=== PATIENT | male | born 1960 | race African-American/Black ===

== ENCOUNTER 2017-09-16 10:36 | Inpatient (IN) | payer MEDICARE ==
[~2017-09-16] VITALS: Ht 185.4 cm; Wt 71.8 kg
[2017-09-16 12:22] VITALS: BP 132/91
[2017-09-16] MEDS ORDERED: PERCOCET 10-321 EACH PO (12:36)
[2017-09-16] MEDS ORDERED: COLACE100 MG PO (12:37)
[2017-09-16] MEDS ORDERED: NICODERM CQ1 EAC2 T (12:37)
[2017-09-16] MEDS ORDERED: NORVASC5 MG PO (12:38)
[2017-09-16] MEDS ORDERED: PLAVIX75 M1 PO (12:38)
[2017-09-16] MEDS ORDERED: LIPITOR40 MG PO (12:38)
[2017-09-16] MEDS ORDERED: XARE20MG PO (12:39)
[2017-09-16] MEDS ORDERED: COZAAR50 M1 PO (12:39)
[2017-09-16 13:36] LABS: BASO % 0.2 % (0.0-1.0); EOS % 0.3 % (1.0-4.0); HEMATOCRIT 38.4 % (42.0-52.0); HEMOGLOBIN 12.4 g/dl (14.0-18.0); LYMPH # 1.1 10*3/uL (1.3-4.4); LYMPH % 17.5 % (27.0-41.0); MEAN CELL VOLUME 84.4 fl (80.0-94.0); MEAN CORPUSCULAR HGB 27.3 pg (27.0-31.0); MEAN CORPUSCULAR HGB CONC 32.3 g/dl (33.0-37.0); MEAN PLATELET VOLUME 10.6 fl (9.6-12.3); MONO # 0.3 10*3/uL (0.1-1.0); MONO % 5.1 % (3.0-9.0); NEUT # 4.6 10*3/uL (2.3-7.9); NEUT % 76.6 % (47.0-73.0); PLATELET COUNT AUTOMATED 254 10*3/uL (130-400); RED BLOOD COUNT 4.55 10*6/uL (4.50-5.90)
[2017-09-16 13:43] LABS: INTERNATIONAL NORM RATIO 0.9 (2.0-3.5)
[2017-09-16 13:50] LABS: ALBUMIN 3.5 gm/dl (3.1-4.5); ALKALINE PHOSPHATASE 88 U/L (45-117); BUN 13 mg/dl (7-24); CHLORIDE 108 mmol/L (98-107); CREATININE 1.19 mg/dL (0.70-1.30); POTASSIUM 3.8 mmol/L (3.5-5.1); SGOT/AST 15 IU/L (3-35); SGPT/ALT 25 U/L (12-78); SODIUM 142 mmol/L (136-145); TOTAL PROTEIN 6.9 gm/dL (6.4-8.2)
[2017-09-16 13:57] LABS: ETHYL ALCOHOL < 3.0 mg/dl (<3)
[2017-09-16 16:00] VITALS: BP 146/83
[2017-09-16 16:30] LABS: BILIRUBIN NEGATIVE (NEGATIVE); BLOOD NEGATIVE (NEGATIVE); CLARITY CLEAR (CLEAR); COLOR YELLOW (YELLOW); GLUCOSE NEGATIVE (NEGATIVE); KETONE NEGATIVE (NEGATIVE); LEUKO ESTERASE NEGATIVE (NEGATIVE); NITRITE NEGATIVE (NEGATIVE); SPECIFIC GRAVITY 1.025 (1.005-1.030); UROBILINOGEN 0.2 E.U./dl (0.2-1.0)
[2017-09-16 16:38] LABS: CALCIUM OXALATE CRYSTALS 1+; MUCOUS 1+; WBC 0-2 wbc/hpf (0-5)
[2017-09-16 16:40] LABS: URINE AMPHETAMINES < 1000 (1000ng/ml); URINE BARBITURATES < 200 (200ng/ml); URINE BENZODIAZEPINES < 200 (200ng/ml); URINE CANNABINOIDS (THC) > 50 (50ng/ml); URINE COCAINE > 300 (300ng/ml); URINE METHADONE < 300 (300ng/ml); URINE OPIATES < 300 (300ng/ml)
[2017-09-16 16:44] LABS: URINE PHENCYCLIDINE < 25 (25ng/ml)
[2017-09-16 20:00] VITALS: BP 142/86
[2017-09-17] VITALS: BP 148/91
[2017-09-17 08:00] VITALS: BP 148/83
[2017-09-17 12:00] VITALS: BP 132/78
== END 2017-09-17 16:17 | DRG 880 ==
LOC: 4E 10:36
PROVIDERS: Student in an Organized Health Care Education/Training Program
DX: F41.9 Anxiety disorder, unspecified (principal); E87.8 Other disorders of electrolyte and fluid balance, not elsewhere classified; I82.509 Chronic embolism and thrombosis of unspecified deep veins of unspecified lower extremity; D64.9 Anemia, unspecified; R73.9 Hyperglycemia, unspecified; D72.9 Disorder of white blood cells, unspecified; D72.810 Lymphocytopenia; I10 Essential (primary) hypertension; E78.5 Hyperlipidemia, unspecified; F17.200 Nicotine dependence, unspecified, uncomplicated; F10.10 Alcohol abuse, uncomplicated; F14.90 Cocaine use, unspecified, uncomplicated; F12.90 Cannabis use, unspecified, uncomplicated; Z71.6 Tobacco abuse counseling; I25.2 Old myocardial infarction; Z95.5 Presence of coronary angioplasty implant and graft; Z82.49 Family history of ischemic heart disease and other diseases of the circulatory system; Z83.3 Family history of diabetes mellitus; Z88.6 Allergy status to analgesic agent; Z79.899 Other long term (current) drug therapy